=== PATIENT | female | born 1990 | race African-American/Black ===

== ENCOUNTER 2017-06-05 14:30 | Emergency (ER) | payer MEDICAID ==
[~2017-06-05] VITALS: Ht 154.9 cm; Wt 64.0 kg
[~2017-06-05 14:30] MED LIST: PREN-142 PO
[2017-06-05] MEDS ORDERED: KETOROLAC 60MG/2ML VIAL IM ONE (18:45)
[2017-06-05] MEDS ORDERED: HYDROCODONE/ACETAMINOPHEN 5/325MG TABLET PO ONE (18:45)
[2017-06-05 19:25] LABS: HCG SCREEN NEGATIVE
[2017-06-05 20:16] VITALS: BP 109/74
== END 2017-06-05 21:06 | disposition home or self-care (01) ==
LOC: ER 14:30
DX: S01.511A Laceration without foreign body of lip, initial encounter (principal); F12.10 Cannabis abuse, uncomplicated; Y09 Assault by unspecified means; Y93.89 Activity, other specified; Y99.8 Other external cause status; Y92.89 Other specified places as the place of occurrence of the external cause; Z87.891 Personal history of nicotine dependence
CPT/HCPCS: 70450; 70486; 84703; 99285; X7700

== ENCOUNTER 2018-10-20 12:58 | Observation (INO) | payer MEDICAID ==
[~2018-10-20] VITALS: Ht 154.9 cm; Wt 80.7 kg
[2018-10-20] MEDS ORDERED: FOLI-43 MT (13:20)
[2018-10-20] MEDS ORDERED: PREN1TAB78 MT (13:20)
[2018-10-20 14:18] LABS: CLARITY URINE CLEAR (CLEAR); COLOR URINE YELLOW (YELLOW); KETONES URINE NEGATIVE (NEGATIVE); LEUKOCYTE ESTERASE URINE NEGATIVE (NEGATIVE); NITRITE URINE NEGATIVE (NEGATIVE); OCCULT BLOOD URINE NEGATIVE (NEGATIVE); PROTEIN URINE NEGATIVE (NEGATIVE); SPECIFIC GRAVITY URINE 1.011 (1.005-1.030); UROBILINOGEN URINE 0.2 E.U./dL (0.2-1.0)
== END 2018-10-20 15:20 | disposition home or self-care (01) ==
LOC: 8 EST LDRP 12:58
PROVIDERS: ADMIT Obstetrics & Gynecology; ATTEND Obstetrics & Gynecology
DX: O26.893 Other specified pregnancy related conditions, third trimester (principal); M54.5 Low back pain; R10.30 Lower abdominal pain, unspecified; Z3A.28 28 weeks gestation of pregnancy
CPT/HCPCS: 99281; G0378

== ENCOUNTER 2018-12-21 17:04 | Observation (INO) | payer MEDICAID ==
[~2018-12-21] VITALS: Ht 160 cm; Wt 90.7 kg
[~2018-12-21 17:04] MED LIST changes: +FOLI-43 MT; -PREN-142 PO; +PREN1TAB78 MT
[2018-12-21 18:31] LABS: CLARITY URINE CLEAR (CLEAR); COLOR URINE YELLOW (YELLOW); KETONES URINE TRACE (NEGATIVE); LEUKOCYTE ESTERASE URINE NEGATIVE (NEGATIVE); NITRITE URINE NEGATIVE (NEGATIVE); OCCULT BLOOD URINE NEGATIVE (NEGATIVE); PROTEIN URINE NEGATIVE (NEGATIVE); SPECIFIC GRAVITY URINE 1.007 (1.005-1.030)
== END 2018-12-21 19:10 | disposition home or self-care (01) ==
LOC: 8 EST LDRP 17:04
PROVIDERS: ADMIT Obstetrics & Gynecology; ATTEND Obstetrics & Gynecology
DX: O26.893 Other specified pregnancy related conditions, third trimester (principal); R10.2 Pelvic and perineal pain; Z3A.36 36 weeks gestation of pregnancy
CPT/HCPCS: 81003; 99281; G0378

== ENCOUNTER 2019-01-07 09:23 | Inpatient (IN) | payer MEDICAID ==
[~2019-01-07] VITALS: Ht 154.9 cm; Wt 82.6 kg
[~2019-01-07 09:23] MED LIST changes: -FOLI-43 MT
[2019-01-07] MEDS ORDERED: METHYLERGONOVINE MALEATE 0.2 MG/ML IM PRN (10:15)
[2019-01-07] MEDS ORDERED: NALOXONE HCL 0.4 MG/ML 1ML VIAL IM PRN (10:15)
[2019-01-07] MEDS: LACTATED RINGERS 1,000 ML IV SCH ×3 (10:30→12:35)
[2019-01-07 11:14] LABS: BASOPHILS % 0.2 % (0.0-2.0); EOSINOPHILS % 1.2 % (0.0-5.0); HEMATOCRIT. 36.3 % (36.0-48.0); HEMOGLOBIN. 12.2 g/dL (12.0-16.0); LYMPHOCYTES % 25.8 % (20.0-50.0); MEAN CORPUSCULAR HEMOGLOBIN 29.3 pg (28.0-32.0); MEAN CORPUSCULAR VOLUME 87.4 fL (81.0-99.0); MEAN PLATELET VOLUME 8.9 fl (7.4-10.4); MONOCYTES % 10.3 % (2.0-8.0); NEUTROPHILS % 62.5 % (40.0-76.0); PLATELET 183 x1000/uL (130-400); RED BLOOD CELL COUNT 4.15 mill/uL (4.2-5.4); RED CELL DISTRIBUTION WIDTH 14.3 % (11.6-14.6)
[2019-01-07 11:22] LABS: PARTIAL THROMBOPLASTIN TIME 26.4 sec (23.4-31.0); PROTHROMBIN TIME 9.9 sec (9.6-11.0)
[2019-01-07] MEDS ORDERED: CITRIC ACID/SODIUM CITRATE SOLN 30ML UDC PO ONE (12:00)
[2019-01-07 12:12] LABS: HEPATITIS B SURFACE ANTIGEN NEGATIVE
[2019-01-07 12:23] LABS: CLARITY URINE CLOUDY (CLEAR); COLOR URINE YELLOW (YELLOW); KETONES URINE NEGATIVE (NEGATIVE); LEUKOCYTE ESTERASE URINE 2+ (NEGATIVE); NITRITE URINE NEGATIVE (NEGATIVE); OCCULT BLOOD URINE NEGATIVE (NEGATIVE); PH URINE 6.5 (4.5-8.0); PROTEIN URINE NEGATIVE (NEGATIVE); SPECIFIC GRAVITY URINE 1.018 (1.005-1.030)
[2019-01-07] MEDS ORDERED: FENTANYL CITRATE/PF 50MCG/ML 2ML VIAL ONE (12:36)
[2019-01-07] MEDS ORDERED: MORPHINE SULFATE/PF 1MG/ML 10ML AMP ONE (12:36)
[2019-01-07] MEDS ORDERED: PHENYLEPHRINE HCL 10 MG/ML 1ML (IV VIAL) IV ONE (12:37)
[2019-01-07] MEDS ORDERED: ONDANSETRON HCL 4MG/2ML INJ ONE (12:37)
[2019-01-07] MEDS ORDERED: GLYCOPYRROLATE 0.2 MG/ML 2ML VIAL ONE (12:37)
[2019-01-07] MEDS ORDERED: OXYTOCIN 10 UNITS/ML 1ML ONE ×2 (12:37→13:47)
[2019-01-07] MEDS ORDERED: CEFAZOLIN SODIUM 1000MG/VIAL ONE (12:37)
[2019-01-07] MEDS ORDERED: BUPIVACAINE HCL/DEXTROSE/PF 0.75% 2ML AMP INJ ONE (12:37)
[2019-01-07] MEDS ORDERED: EPHEDRINE SULFATE 50MG/ML VIAL ONE (12:37)
[2019-01-07 12:48] LABS: *AMPHETAMINES SCREEN URINE NEGATIVE (NEGATIVE); *BARBITURATES SCREEN URINE NEGATIVE (NEGATIVE); *BENZODIAZEPINES SCREEN URINE NEGATIVE (NEGATIVE); CANNABINOID URINE SCREEN NEGATIVE (NEGATIVE)
[2019-01-07 12:49] LABS: *COCAINE SCREEN URINE NEGATIVE (NEGATIVE); METHADONE URINE SCREEN NEGATIVE (NEGATIVE); OPIATES URINE SCREEN NEGATIVE (NEGATIVE); PHENCYCLIDINE URINE SCREEN NEGATIVE (NEGATIVE)
[2019-01-07] MEDS ORDERED: KETOROLAC 60MG/2ML VIAL IM ONE (13:57)
[2019-01-07] MEDS ORDERED: KETOROLAC 30MG/ML VIAL IV PRN (14:15)
[2019-01-07] MEDS ORDERED: NALOXONE HCL 0.4 MG/ML 1ML VIAL IV PRN (14:15)
[2019-01-07] MEDS ORDERED: DIPHENHYDRAMINE 50MG/ML VIAL IV PRN (14:15)
[2019-01-07] MEDS ORDERED: BUTORPHANOL TARTRATE 2 MG/ML VIAL IV PRN (14:15)
[2019-01-07] MEDS ORDERED: ONDANSETRON HCL 4MG/2ML INJ IV PRN (16:00)
[2019-01-07] MEDS ORDERED: RHO(D) IMMUNE GLOBULIN 300 MCG/SYR IM PRN (16:00)
[2019-01-07] MEDS ORDERED: LANOLIN OINT 0.25 GM TUBE TOP PRN (16:00)
[2019-01-07] MEDS ORDERED: DEXT 5%/LR + PITOCIN 20UNITS/L 1,000 ML IV SCH (16:00)
[2019-01-07] MEDS: DEXT 5%/LR + PITOCIN 20UNITS/L 1,000 ML IV SCH (16:00)
[2019-01-07 17:30] VITALS: BP 103/66
[2019-01-07 18:00] VITALS: BP 104/55
[2019-01-07 19:45] VITALS: BP 98/56
[2019-01-08] VITALS: BP 98/58
[2019-01-08] MEDS: DEXT 5%/LR + PITOCIN 20UNITS/L 1,000 ML IV SCH (01:00)
[2019-01-08 04:00] VITALS: BP 97/57
[2019-01-08 06:32] LABS: BASOPHILS % 0.1 % (0.0-2.0); EOSINOPHILS % 0.3 % (0.0-5.0); HEMATOCRIT. 29.3 % (36.0-48.0); HEMOGLOBIN. 9.8 g/dL (12.0-16.0); LYMPHOCYTES % 15.8 % (20.0-50.0); MEAN CORPUSCULAR HEMOGLOBIN 29.5 pg (28.0-32.0); MEAN CORPUSCULAR VOLUME 88.4 fL (81.0-99.0); MEAN PLATELET VOLUME 8.3 fl (7.4-10.4); NEUTROPHILS % 75.8 % (40.0-76.0); PLATELET 157 x1000/uL (130-400); RED BLOOD CELL COUNT 3.31 mill/uL (4.2-5.4); RED CELL DISTRIBUTION WIDTH 14.3 % (11.6-14.6)
[2019-01-08 08:00] VITALS: BP 93/52
[2019-01-08] MEDS: PRENATAL VIT/FE FUMARATE/FA TABLET PO SCH (14:58)
[2019-01-08] MEDS: IBUPROFEN 400MG TABLET PO PRN (14:58)
[2019-01-08] MEDS: ACETAMINOPHEN WITH CODEINE 300/30MG TABLET PO PRN ×2 (15:59→21:00)
[2019-01-08 16:09] VITALS: BP 89/51
[2019-01-08 20:00] VITALS: BP 90/57
[2019-01-08] MEDS: DOCUSATE SODIUM 100MG CAPSULE PO SCH (20:57)
[2019-01-09 04:15] VITALS: BP 92/53
[2019-01-09] MEDS: ACETAMINOPHEN WITH CODEINE 300/30MG TABLET PO PRN ×2 (05:01→21:13)
[2019-01-09 07:31] VITALS: BP 92/52
[2019-01-09] MEDS: PRENATAL VIT/FE FUMARATE/FA TABLET PO SCH (08:31)
[2019-01-09] MEDS: IBUPROFEN 400MG TABLET PO PRN (08:31)
[2019-01-09] MEDS: HYDROCODONE/ACETAMINOPHEN 5/325MG TABLET PO PRN ×2 (10:37→18:03)
[2019-01-09 16:08] VITALS: BP 92/52
[2019-01-09] MEDS: CLOTRIMAZOLE 1% CREAM 30GM TOP SCH (16:47)
[2019-01-09] MEDS ORDERED: TETANUS, DIPHTHERIA, PERTUSSIS VAC/PF 0.5ML (>7YR OLD) IM ONE (19:00)
[2019-01-09 20:00] VITALS: BP 89/57
[2019-01-09] MEDS: DOCUSATE SODIUM 100MG CAPSULE PO SCH (20:12)
[2019-01-10] MEDS: HYDROCODONE/ACETAMINOPHEN 5/325MG TABLET PO PRN ×3 (03:30→11:48)
[2019-01-10 03:38] VITALS: BP 98/52
[2019-01-10 07:20] VITALS: BP 91/52
[2019-01-10 07:45] VITALS: BP 90/51
[2019-01-10] MEDS: PRENATAL VIT/FE FUMARATE/FA TABLET PO SCH (08:33)
[2019-01-10] MEDS: CLOTRIMAZOLE 1% CREAM 30GM TOP SCH (08:34)
[2019-01-10] MEDS ORDERED: BISACODYL 10MG SUPP PR NR (12:30)
== END 2019-01-10 13:30 | disposition home or self-care (01) | DRG 540 ==
LOC: OBSVTOIN 09:23 → 8 EST LDRP 09:23 → 8EST 17:32
PROVIDERS: ADMIT Obstetrics & Gynecology; ATTEND Obstetrics & Gynecology
PROC: 10D00Z1 Extraction of Products of Conception, Low, Open Approach (ICD-10-PCS; principal; 2019-01-07)
PROC: 3E0234Z Introduction of Serum, Toxoid and Vaccine into Muscle, Percutaneous Approach (ICD-10-PCS; 2019-01-08)
DX: O34.211 Maternal care for low transverse scar from previous cesarean delivery (principal); D62 Acute posthemorrhagic anemia; O90.81 Anemia of the puerperium; B35.4 Tinea corporis; O75.89 Other specified complications of labor and delivery; Z37.0 Single live birth; Z79.899 Other long term (current) drug therapy; Z3A.39 39 weeks gestation of pregnancy
CPT/HCPCS: 36415; 80305; 86592; 86703; 86762; 86850; 86870; 86886; 86900; 86920; 87340; 88307; 90384; 90715; J0595; J0690; J1200; J1885; J2274; J2370; J2405; J2590; J3010; J3490; A4315